=== PATIENT | female | born 2000 | race Two or more races ===

== ENCOUNTER 2023-03-19 20:22 | Emergency (ER) | payer OTHER ==
[~2023-03-19] VITALS: Ht 160 cm; Wt 56.7 kg
[2023-03-19] MEDS ORDERED: IBU600T PO (21:15)
[2023-03-19] MEDS ORDERED: ONDANSETRON ODT 4 MG TAB PO ONE (21:15)
[2023-03-19] MEDS ORDERED: HYDROmorphone HCL 2 MG/ML VL/or syr IM ONE (21:15)
[2023-03-19] MEDS ORDERED: ACET-6 PO (21:15)
[2023-03-19] MEDS ORDERED: CYCL-611 PO (21:15)
[2023-03-19] MEDS ORDERED: IBUPROFEN 600 MG TAB PO ONE (21:15)
[2023-03-19 21:42] VITALS: TEMP 98.3; O2SAT 96
[2023-03-19] MEDS ORDERED: MORPHINE SULFATE INJ 2 MG/ml SYRG IM ONE (21:45)
[2023-03-19 21:51] VITALS: BP 106/54; PULSE 83; RESP 15
== END 2023-03-19 21:54 | disposition home or self-care (01) ==
LOC: EDBD 20:22 → ER 20:22
DX: G89.29 Other chronic pain (principal); M54.89 Other dorsalgia; Z79.899 Other long term (current) drug therapy
CPT/HCPCS: 96372; 99283; J2270